=== PATIENT | male | born 1985 | race Two or more races ===

== ENCOUNTER 2016-03-16 19:19 | Emergency (ER) | payer OTHER ==
[2016-03-16 19:28] VITALS: BP 118/72
--- NOTE | 2016-03-16 19:59 | UC ---
UC General HPI - HPI Summary HPI Summary: The patient comes in today for: 1. Left leg swelling Onset: One week ago. Palliative/provocative: Not walking makes it worse. Rest makes it better with his leg elevated. Quality: Pressure pain. Hot pain. Region: Left lateral calf. Severity: Now 4/10 but with exertion i.e climbing stairs 8/10 Time: Constant. Associated symptoms: Injury: None. Travel: He went to [facility]. He left [place] January 11 and came back March 02. He developed the swelling on the . He was on a plane for about 12 hours from [place] to [place]. Blood clotting problem in patient or family: None. * - History of Current Complaint Chief Complaint: UCLowerExtremity Stated Complaint: SWOLLEN LEG Time Seen by Provider: 03/16/16 19:30 Hx Obtained From: Patient - Allergy/Home Medications Allergies/Adverse Reactions: Allergies Allergy/AdvReac Type Severity Reaction Status Date / Time No Known Allergies Allergy Verified 03/16/16 19:28 PMH/Surg Hx/FS Hx/Imm Hx Previously Healthy: Yes Endocrine History Of: Denies: Diabetes, Thyroid Disease, Hyperthyroidism, Hypothyroidism, Dyslipidemia Cardiovascular History Of: Denies: Cardiac Disorders, Hypertension, Pacemaker/ICD, Myocardial Infarction , Congestive Heart Failure, Atrial Fibrillation, Deep Vein Thrombosis, Bleeding Disorders Respiratory History Of: Denies: COPD, Asthma, Bronchitis, Pneumonia, Pulmonary Embolism GI/ History Of: Denies: Gastroesophageal Reflux, Ulcer, Gastrointestinal Bleed, Gall Bladder Disease, Kidney Stones, Diverticulitis, Renal Disease, Urosepsis Neurological History Of: Reports: Migraine - Once or twice a year, he will have headaches. Denies: TIA, CVA, Dementia, Seizures Psychological History Of: Denies: Anxiety, Depression, Bipolar Disorder, Schizophrenia, Post Traumatic Stress Disorder Cancer History Of: Denies: Lung Cancer, Colorectal Cancer, Breast Cancer, Prostate Cancer, Cervical Cancer Other History Of: Negative For: HIV, Hepatitis B, Hepatitis C, Anticoagulant Therapy - Surgical History Surgical History: None - Family History Known Family History: Negative: Cardiac Disease, Hypertension - Social History Occupation: Employed Part-time Alcohol Use: Occasionally Substance Use Type: None Smoking Status (MU): Never Smoked Tobacco Review of Systems Constitutional: Negative Skin: Negative Eyes: Negative ENT: Negative Respiratory: Negative Cardiovascular: Negative Gastrointestinal: Negative Genitourinary: Negative All Other Systems Reviewed And Are Negative: Yes Physical Exam Triage Information Reviewed: Yes Appearance: Well-Appearing, No Pain Distress, Well-Nourished Vital Signs: Initial Vital Signs Temp 98.8 F 03/16/16 19:24 Pulse 86 03/16/16 19:24 Resp 16 03/16/16 19:24 BP 118/72 03/16/16 19:24 Pulse Ox 99 03/16/16 19:24 Vital Signs Reviewed: Yes Eyes: Positive: Conjunctiva Clear. Negative: Discharge ENT: Positive: Hearing grossly normal. Negative: Pharynx normal, Pharyngeal erythema, Nasal congestion Dental: Negative: Gross Decay/Caries @, Dental Fracture @ Neck: Positive: Supple, Nontender, No Lymphadenopathy Respiratory: Positive: Chest non-tender, Lungs clear, No respiratory distress, No accessory muscle use. Negative: Crackles, Wheezing Cardiovascular: Positive: RRR, No Murmur Abdomen Description: Positive: Nontender, No Organomegaly, Soft. Negative: Distended, Guarding Musculoskeletal: Positive: Strength Intact, ROM Intact, Other: - Yuki's sign positive Diaz sign: normal No depression in the Achilles tendon with slight dorsiflexion. Calf circumference at 24 CM superior to the medial malleolus: there is a 1.5 cm difference between swollen calf on the left and the normal right one. There is more tenderness to palpation of the lateral calf , but still some tenderness to the posterior calf. None in the popliteal fossa or the upper inner thigh. Neurological: Positive: Muscle Tone Normal Psychological: Positive: Age Appropriate Behavior, Consolable Skin: Negative: rashes, breakdown Course/Dx - Course Course Of Treatment: Patient was told that I could not rule out a DVT and recommended that he go to the ER. He declined and wants to come back to the [facility] for a re-evaluation and lower leg ultrasound. - Differential Dx - Multi-Symptom Provider Diagnoses: Left lower leg/calf pain, swelling (DVT vs muscular strain/ tear) Discharge - Discharge Plan Condition: Stable Disposition: AGAINST MEDICAL ADVICE Prescriptions: HYDROcodone/ACETAMIN 5-325 MG* [Magnolia 5-325 TAB*] 1 tab PO Q6H PRN #20 tab MDD 4 PRN Reason: Pain Forms: *Work Release Referrals: [facility] [Outside] No Primary Care Phys,NOPCP [Primary Care Provider] - Additional Instructions: If you are not going to the ER tonight, please be seen tomorrow by your primary care provider or us for a re-evaluation.
== END 2016-03-16 20:40 | disposition left against medical advice (07) ==
LOC: UCEAST 19:19
DX: M79.662 Pain in left lower leg (principal); R60.0 Localized edema
CPT/HCPCS: 99202; G0463